=== PATIENT | female | born 1990 | race Caucasian/White ===

== ENCOUNTER 2023-06-24 20:28 | Emergency (ER) | payer SELFPAY ==
--- NOTE | 2023-06-24 | US_ITS ---
The [address] [address] Patient Name: ODELL GARCIA MRN: [id number] date: 1990 Sex: F Assigned Patient Location: ER Current Patient Location: ER Accession/Order Number: [id number] Exam Date: 06/24/2023 23:30 Report Date: 06/25/2023 00:16 At the request of: CORTES TSANG Procedure: US vas organ single comp Examination:US pelvis transvaginal, US vas organ single comp HISTORY: torsion COMPARISONS: CT abdomen and pelvis from the same day. TECHNIQUE: Transvaginal scanning of the pelvis was performed. Color flow Doppler analysis was utilized to evaluate the ovaries. FINDINGS: UTERUS: Normal in size and echogenicity. The uterus measures 7.1 x 4.1 x 5.8 cm. MYOMETRIUM:Unremarkable. ENDOMETRIUM: The endometrium is within normal limits. The endometrium measures1.4 cm which is within normal limits in this premenopausal patient. RIGHT OVARY: There is vascular flow to the right ovary. The right ovary measures 7.0 x 3.5 x 5.2 cm. There is a large cyst arising from the right ovary measuring 4.8 x 4.5 x 4.3 cm. There is a faint peripheral septation without vascular flow. LEFT OVARY: Within normal limits without suspicious masses or cyst. There is normal blood flow. The left ovary measures 3.2 x 2.8 x 1.9 cm. OTHER:There is no significant free fluid in the pelvis. US/US vas organ single comp IMPRESSION: There is no evidence of ovarian torsion based on this exam. There is vascular flow to both ovaries. There is a large mildly complex cyst arising from the right ovary measuring 4.8 x 4.5 x 4.3 cm. This has a thin peripheral avascular septation. Electronically authenticated by: ANGELA DILLARD Date: 06/25/2023 00:16
[2023-06-24 20:34] VITALS: BP 142/96; PULSE 116; RESP 20; TEMP 37.3; O2SAT 99; BMI 41.6
--- NOTE | 2023-06-24 20:42 | CT_ITS ---
The [address] [address] Patient Name: ODELL GARCIA MRN: [id number] date: 1990 Sex: F Assigned Patient Location: ER Current Patient Location: ER Accession/Order Number: [id number] Exam Date: 06/24/2023 21:38 Report Date: 06/24/2023 22:57 At the request of: LELIA GARDINER Procedure: CT abdomen pelvis wo con EXAM: CT SCAN OF THE ABDOMEN AND PELVIS WITHOUT IV CONTRAST DATE OF EXAM: 06/24/2023 9:38 PM EST HISTORY: rlq pain COMPARISON: None. TECHNIQUE: CT examination of the abdomen and pelvis with sagittal and coronal reformations was performed without intravenous contrast. CT dose lowering techniques were used, to include: automated exposure control, adjustment for patient size, and/or use of iterative reconstruction. CONTRAST: None. FINDINGS: Note: This exam is limited because some types of pathology may not be adequately demonstrated due to lack of contrast enhancement. Bus Boy/Lines & Tubes: Nonobstructive bowel gas pattern Lower Chest: Normal Free Air: None. Liver: Normal Gallbladder: Removed Common Bile Duct: Normal Pancreas: Normal Spleen: Normal Adrenal Glands: Right: Normal. Left: Normal Kidneys: Right Kidney: Normal. Right Ureter: Normal. Left Kidney: Normal. Left Ureter: Normal. GI Tract: Distal Esophagus: Normal. Stomach: Normal Small Bowel: Normal Appendix: Normal on coronal image 48 of series 5 Large Bowel: Normal Mesentery/Peritoneum: Normal Vasculature: Normal Lymph Nodes: Normal Abdominal Wall: Normal Bladder: Normal Reproductive: Fluid attenuating right ovarian cyst. Uterus is in neutral position. Musculoskeletal: Normal Free Fluid: None. CT/CT abdomen pelvis wo con IMPRESSION: 1. Enlarged right ovary with fluid attenuating region may represent a cyst. However, acute pathology such as torsion not excluded. Transvaginal ultrasound with spectral Doppler is recommended. 2. Normal appendix. 3. Cholecystectomy 4. Hepatomegaly. Please correlate with LFTs 5. Subcentimeter lymph nodes in the mesentery. Please correlate for mesenteric adenitis. Critical results were NOTIFIED by TELEPHONE BY Dr. Dayna Rodriguez MD to Dr. Alvarez At 06/24/2023 10:03 PM EST. Electronically authenticated by: DAYNA RODRIGUEZ Date: 06/24/2023 22:57
[2023-06-24 20:50] LABS: Basophils Absolute Auto 0.1 10^3/uL (0.0-0.1); Basophils Percent Auto 0.5 % (0.2-2.0); Eosinophils Absolute Auto 0.2 10^3/uL (0.0-0.7); Eosinophils Percent Auto 1.4 % (0.9-7.0); Hematocrit 40.1 % (36.0-48.0); Hemoglobin 12.1 g/dL (12.0-16.0); Immature Granulocytes Abs Auto 0.03 10^3/uL (0.00-0.03); Immature Granulocytes Pct Auto 0.2 % (0.0-0.5); Lymphocytes Absolute Auto 3.4 10^3/uL (1.2-3.8); Lymphocytes Percent Auto 24.9 % (20.5-60.0); Mean Corpuscular HGB Conc 30.2 g/dL (29.9-35.2); Mean Corpuscular Hemoglobin 25.7 pg (26.7-34.0); Mean Corpuscular Volume 85.3 fL (81.0-99.0); Mean Platelet Volume 9.5 fL (9.5-13.5); Monocytes Absolute Auto 0.7 10^3/uL (0.3-0.8); Monocytes Percent Auto 4.9 % (1.7-12.0); Neutrophils Absolute Auto 9.2 10^3/uL (1.4-6.5); Neutrophils Percent Auto 68.1 % (43.0-75.0); Platelet Count 371 10^3/uL (150-450); Red Cell Distribution Width 14.1 % (11.0-15.0); White Blood Count 13.6 10^3/uL (4.0-11.0)
[2023-06-24 21:05] LABS: Alanine Aminotransferase 34 U/L (14-59); Albumin Globulin Ratio 0.8; Albumin Level 3.3 g/dL (3.4-5.0); Alkaline Phosphatase 89 U/L (46-116); Anion Gap 12.3; Aspartate Amino Transferase 16 U/L (15-37); BUN Creatinine Ratio 18.8; Bilirubin Total 0.2 mg/dL (0.2-1.0); Calcium 8.6 mg/dL (8.5-10.1); Carbon Dioxide 27.2 mmol/L (21.0-32.0); Chloride 104 mmol/L (98-107); Estimated GFR (African America >60 (>=60); Estimated GFR (Non-African Ame >60 (>=60); Globulin 4.3 g/dL; Glucose 93 mg/dL (74-106); Potassium 3.5 mmol/L (3.5-5.1); Sodium 140 mmol/L (136-145); Total Protein 7.6 g/dL (6.4-8.2)
--- NOTE | 2023-06-24 21:15 | ED_ITS ---
Documented by User: Patsy Simmons 06/24/23 21:23 HPI - General Adult General Chief complaint: Vaginal Bleeding Stated complaint: Lower Abdominal Pain, Nausea Time Seen by Provider: 06/24/23 20:39 Source: patient Mode of arrival: walk-in Limitations: no limitations History of Present Illness HPI narrative: 32-year-old female presents with right lower quadrant abdominal pain. She states she is also having irregular vaginal bleeding. Denies known history of . She states she has had the pain on and off for several days. Denies history of kidney stones. Does not appear toxic. Related Data Home Medications Medication Instructions Recorded Confirmed No Known Home Medications 06/24/23 06/24/23 Allergies Allergy/AdvReac Type Severity Reaction Status Date / Time No Known Drug Allergies Allergy Verified 06/24/23 20:33 Review of Systems ROS Narrative All Systems are negative except as noted/marked.All systems reviewed and otherwise negative PFSH PFS Social History Smoking status: Former smoker Exam Narrative Exam Narrative: Nurses note and vital signs reviewed and patient is not hypoxic. General: The patient appears well and in no apparent distress. Patient is resting comfortably on cart. Skin: Warm, dry, no pallor noted. There is no rash noted. Head: Normocephalic, atraumatic Eye: Normal conjunctiva, no drainage, EOMI. PERRL Ears, Nose, Mouth, and Throat: oral mucosa is moist. Nares patent. Mouth without vesicles. Ear canals patent. Tm's without Erythema Cardiovascular: Regular Rate and Rhythm Respiratory: Patient is in no distress, no accessory muscle use, lungs are clear to auscultation, no wheezing, rales or rhonchi Back: non-tender, no CVA tenderness bilaterally to percussion. GI: Normal bowel sounds, no tenderness to palpation, no masses appreciated. No rebound, guarding, or rigidity noted. Musculoskeletal: The patient has no evidence of calf tenderness, no pitting edema, symmetrical pulses noted bilaterally Neurological: A&O x4, normal speech Psychiatric: Cooperative Constitutional Vital Signs, click to edit/add: Last Vital Signs Temp 99.1 F 06/24/23 20:34 Pulse 73 06/25/23 00:22 Resp 16 06/25/23 00:22 BP 142/79 H 06/25/23 00:22 Pulse Ox 99 06/25/23 00:22 O2 Del Method Room Air 06/25/23 00:22 Course Vital Signs Vital signs: Vital Signs Temperature 99.1 F 06/24/23 20:34 Pulse Rate 116 H 06/24/23 20:34 Respiratory Rate 20 06/24/23 20:34 Blood Pressure 142/96 H 06/24/23 20:34 Pulse Oximetry 99 06/24/23 20:34 Oxygen Delivery Method Room Air 06/24/23 20:34 Temperature 99.1 F 06/24/23 20:34 Pulse Rate 73 06/25/23 00:22 Respiratory Rate 16 06/25/23 00:22 Blood Pressure 142/79 H 06/25/23 00:22 Pulse Oximetry 99 06/25/23 00:22 Oxygen Delivery Method Room Air 06/25/23 00:22 Medical Decision Making MDM Narrative Medical decision making narrative: 2-day history of right lower quadrant abdominal pain. She has no pain to palpation on examination initially. Upon arrival to the emergency room IV was established patient given IV fluids Toradol and Zofran. She will be sent over CT scan for rule out stone or appendicitis. transition Of care to Dr. Alvarez Differential Diagnosis Differential Diagnosis: Nephrolithiasis, appendicitis, ovarian cyst Medical Records Medical records reviewed: Yes I reviewed the patient's medical records Lab Data Lab results reviewed: Yes I reviewed the patient's lab results Labs: Lab Results 06/24/23 Range/Units 20:40 WBC 13.6 H (4.0-11.0) 10^3/uL RBC 4.70 (4.20-5.40) 10^6/uL Hgb 12.1 (12.0-16.0) g/dL Hct 40.1 (36.0-48.0) % MCV 85.3 (81.0-99.0) fL MCH 25.7 L (26.7-34.0) pg MCHC 30.2 (29.9-35.2) g/dL RDW 14.1 (11.0-15.0) % Plt Count 371 (150-450) 10^3/uL MPV 9.5 (9.5-13.5) fL Neut % (Auto) 68.1 (43.0-75.0) % Lymph % (Auto) 24.9 (20.5-60.0) % [place] % (Auto) 4.9 (1.7-12.0) % Eos % (Auto) 1.4 (0.9-7.0) % Baso % (Auto) 0.5 (0.2-2.0) % Neut # (Auto) 9.2 H (1.4-6.5) 10^3/uL Lymph # (Auto) 3.4 (1.2-3.8) 10^3/uL [place] # (Auto) 0.7 (0.3-0.8) 10^3/uL Eos # (Auto) 0.2 (0.0-0.7) 10^3/uL Baso # (Auto) 0.1 (0.0-0.1) 10^3/uL Abs Immat Gran (auto) 0.03 (0.00-0.03) 10^3/uL Imm/Tot Granulo (auto) 0.2 (0.0-0.5) % Sodium 140 (136-145) mmol/L Potassium 3.5 (3.5-5.1) mmol/L Chloride 104 (98-107) mmol/L Carbon Dioxide 27.2 (21.0-32.0) mmol/L Anion Gap 12.3 BUN 15.0 (7.0-18.0) mg/dL Creatinine 0.80 (0.55-1.02) mg/dL Est GFR ( Amer) >60 (>=60) Est GFR (Non-Af Amer) >60 (>=60) BUN/Creatinine Ratio 18.8 Glucose 93 (74-106) mg/dL Calcium 8.6 (8.5-10.1) mg/dL Total Bilirubin 0.2 (0.2-1.0) mg/dL AST 16 (15-37) U/L ALT 34 (14-59) U/L Alkaline Phosphatase 89 (46-116) U/L Total Protein 7.6 (6.4-8.2) g/dL Albumin 3.3 L (3.4-5.0) g/dL Globulin 4.3 g/dL Albumin/Globulin Ratio 0.8 HCG, Quant <1 mIU/mL Discharge Plan Discharge Stand Alone Forms: Portal Instructions Chief Complaint: Vaginal Bleeding Clinical Impression: Cyst of right ovary Patient Disposition: Home, Self-Care Prescriptions / Home Meds: No Action No Known Home Medications Instructions: Ovarian Cyst (ED) Additional Instructions: call your assembler erector tuesday for followup . Return if increasing pain Referrals: Physician,Non-Staff, [Primary Care Provider] - 1 week Documented by User: Real Alvarez MD 06/25/23 00:58 HPI - General Adult General Chief complaint: Vaginal Bleeding Stated complaint: Lower Abdominal Pain, Nausea Time Seen by Provider: 06/24/23 20:39 Related Data Home Medications Medication Instructions Recorded Confirmed No Known Home Medications 06/24/23 06/24/23 Allergies Allergy/AdvReac Type Severity Reaction Status Date / Time No Known Drug Allergies Allergy Verified 06/24/23 20:33 PFSH PFSH Social History Smoking status: Former smoker Exam Constitutional Vital Signs, click to edit/add: Last Vital Signs Temp 99.1 F 06/24/23 20:34 Pulse 73 06/25/23 00:22 Resp 16 06/25/23 00:22 BP 142/79 H 06/25/23 00:22 Pulse Ox 99 06/25/23 00:22 O2 Del Method Room Air 06/25/23 00:22 Course Vital Signs Vital signs: Vital Signs Temperature 99.1 F 06/24/23 20:34 Pulse Rate 116 H 06/24/23 20:34 Respiratory Rate 20 06/24/23 20:34 Blood Pressure 142/96 H 06/24/23 20:34 Pulse Oximetry 99 06/24/23 20:34 Oxygen Delivery Method Room Air 06/24/23 20:34 Temperature 99.1 F 06/24/23 20:34 Pulse Rate 73 06/25/23 00:22 Respiratory Rate 16 06/25/23 00:22 Blood Pressure 142/79 H 06/25/23 00:22 Pulse Oximetry 99 06/25/23 00:22 Oxygen Delivery Method Room Air 06/25/23 00:22 Medical Decision Making MDM Narrative Medical decision making narrative: 2-day history of right lower quadrant abdominal pain. She has no pain to palpation on examination initially. Upon arrival to the emergency room IV was established patient given IV fluids Toradol and Zofran. She will be sent over CT scan for rule out stone or appendicitis. transition Of care to Dr. Alvarez US pelvis demonstrates large right ovarian cyst 4.8x4.5x4.3 with faint peripheral septation without vascular flow. Normal vascular flow to the right ovary. Patient informed of the above and discharged to followup with her assembler erector Lab Data Labs: Lab Results 06/24/23 Range/Units 20:40 WBC 13.6 H (4.0-11.0) 10^3/uL RBC 4.70 (4.20-5.40) 10^6/uL Hgb 12.1 (12.0-16.0) g/dL Hct 40.1 (36.0-48.0) % MCV 85.3 (81.0-99.0) fL MCH 25.7 L (26.7-34.0) pg MCHC 30.2 (29.9-35.2) g/dL RDW 14.1 (11.0-15.0) % Plt Count 371 (150-450) 10^3/uL MPV 9.5 (9.5-13.5) fL Neut % (Auto) 68.1 (43.0-75.0) % Lymph % (Auto) 24.9 (20.5-60.0) % [place] % (Auto) 4.9 (1.7-12.0) % Eos % (Auto) 1.4 (0.9-7.0) % Baso % (Auto) 0.5 (0.2-2.0) % Neut # (Auto) 9.2 H (1.4-6.5) 10^3/uL Lymph # (Auto) 3.4 (1.2-3.8) 10^3/uL [place] # (Auto) 0.7 (0.3-0.8) 10^3/uL Eos # (Auto) 0.2 (0.0-0.7) 10^3/uL Baso # (Auto) 0.1 (0.0-0.1) 10^3/uL Abs Immat Gran (auto) 0.03 (0.00-0.03) 10^3/uL Imm/Tot Granulo (auto) 0.2 (0.0-0.5) % Sodium 140 (136-145) mmol/L Potassium 3.5 (3.5-5.1) mmol/L Chloride 104 (98-107) mmol/L Carbon Dioxide 27.2 (21.0-32.0) mmol/L Anion Gap 12.3 BUN 15.0 (7.0-18.0) mg/dL Creatinine 0.80 (0.55-1.02) mg/dL Est GFR ( Amer) >60 (>=60) Est GFR (Non-Af Amer) >60 (>=60) BUN/Creatinine Ratio 18.8 Glucose 93 (74-106) mg/dL Calcium 8.6 (8.5-10.1) mg/dL Total Bilirubin 0.2 (0.2-1.0) mg/dL AST 16 (15-37) U/L ALT 34 (14-59) U/L Alkaline Phosphatase 89 (46-116) U/L Total Protein 7.6 (6.4-8.2) g/dL Albumin 3.3 L (3.4-5.0) g/dL Globulin 4.3 g/dL Albumin/Globulin Ratio 0.8 HCG, Quant <1 mIU/mL Discharge Plan Discharge Stand Alone Forms: Portal Instructions Chief Complaint: Vaginal Bleeding Clinical Impression: Cyst of right ovary Patient Disposition: Home, Self-Care Prescriptions / Home Meds: No Action No Known Home Medications Instructions: Ovarian Cyst (ED) Additional Instructions: call your assembler erector tuesday for followup . Return if increasing pain Referrals: Physician,Non-Staff, MD [Primary Care Provider] - 1 week
[2023-06-24] MEDS: 0.9 % SODIUM CHLORIDE 1,000 ML 100 ML IV (21:24)
[2023-06-24] MEDS: KETOROLAC TROMETHAMINE 30 MG/ML VIAL IVP (21:25)
[2023-06-24] MEDS: ONDANSETRON PF 4 MG/2 ML VIAL IV (21:26)
[2023-06-24 21:27] LABS: HCG Quantitative <1 mIU/mL
[2023-06-24 22:42] VITALS: BP 125/80; PULSE 83; RESP 16; O2SAT 100
--- NOTE | 2023-06-24 22:58 | US_ITS ---
The [address] [address] Patient Name: ODELL GARCIA MRN: [id number] date: 1990 Sex: F Assigned Patient Location: ER Current Patient Location: ER Accession/Order Number: [id number] Exam Date: 06/24/2023 23:30 Report Date: 06/25/2023 00:16 At the request of: CORTES TSANG Procedure: US pelvis transvaginal Examination:US pelvis transvaginal, US vas organ single comp HISTORY: torsion COMPARISONS: CT abdomen and pelvis from the same day. TECHNIQUE: Transvaginal scanning of the pelvis was performed. Color flow Doppler analysis was utilized to evaluate the ovaries. FINDINGS: UTERUS: Normal in size and echogenicity. The uterus measures 7.1 x 4.1 x 5.8 cm. MYOMETRIUM:Unremarkable. ENDOMETRIUM: The endometrium is within normal limits. The endometrium measures1.4 cm which is within normal limits in this premenopausal patient. RIGHT OVARY: There is vascular flow to the right ovary. The right ovary measures 7.0 x 3.5 x 5.2 cm. There is a large cyst arising from the right ovary measuring 4.8 x 4.5 x 4.3 cm. There is a faint peripheral septation without vascular flow. LEFT OVARY: Within normal limits without suspicious masses or cyst. There is normal blood flow. The left ovary measures 3.2 x 2.8 x 1.9 cm. OTHER:There is no significant free fluid in the pelvis. US/US pelvis transvaginal IMPRESSION: There is no evidence of ovarian torsion based on this exam. There is vascular flow to both ovaries. There is a large mildly complex cyst arising from the right ovary measuring 4.8 x 4.5 x 4.3 cm. This has a thin peripheral avascular septation. Electronically authenticated by: ANGELA DILLARD Date: 06/25/2023 00:16
[2023-06-25 00:22] VITALS: BP 142/79; PULSE 73; RESP 16; O2SAT 99
== END 2023-06-25 01:25 | disposition home or self-care (01) ==
PROVIDERS: Physician Assistant; Emergency Provider Internal Medicine
DX: N83.201 Unspecified ovarian cyst, right side (principal); Z87.891 Personal history of nicotine dependence
CPT/HCPCS: 36415; 74176; 76830; 80053; 84702; 84703; 85025; 93975; 96374; 96375; 99285

== ENCOUNTER 2024-02-15 20:33 | Outpatient (REF) | payer OTHER, SELFPAY ==
--- OUTSIDE RECORDS SUMMARY | 2024-02-15 20:37 | XMS_ITS | CCD ---
Author Organization [facility] Care Team Providers Care Integrated Logistics Support Manager Name Role Phone HOUSE, DR EVANS Primary Care Unavailable KELSI, EMMA Admitting Unavailable KELSI, EMMA Attending Unavailable JOIE, DR AYANNA Burleson Consulting Unavailable KELSI, EMMA Consulting Unavailable MAURO, DR EVANS Admitting Unavailable MAURO, DR EVANS Attending Unavailable VALENTINE, DR EVANS Primary Care Unavailable JOIE, DR AYANNA Burleson Consulting Unavailable VALENTINE, DR EVANS Consulting Unavailable PARI ZARATE Attending Unavailable Allergies Allergy Classification Reported Allergen(s) Allergy Type Date of Onset Reaction(s) Facility (1 source) Edetate Calcium Drug Allergy 11-26-2019 [facility] Repository Problems Active Problems Problem Classification Problem Date Documented Da te Episodic/Chronic Substance-related disorders (1 source) Nicotine dependence, cigarettes, uncomplicated; Translations: [NICOTINE DEPEND CIGARETTES UNCOMP] Onset: 01-14-2021 Chronic Past or Other Problems Problem Classification Problem Date Documented Da te Episodic/Chronic Abdominal pain (3 sources) Pelvic and perineal pain; Translations: [PELVIC AND PERINEAL PAIN] Onset: 01-12-2021 Episodic Ovarian cyst (2 sources) Unspecified ovarian cyst, left side; Translations: [Unspecified ovarian cyst, right side] Onset: 01-14-2021 Episodic Residual codes; unclassified (1 source) Acquired absence of other specified parts of digestive tract; Translations: [ACQ ABSENCE OTH PART DIGESTV TRACT] Onset: 01-14-2021 Episodic Results Test Name Value Interpretation Reference Range Facil ity ER URINE PROFILEon 1 Bilirubin Ql (U) Negative Normal NEGATIVE [facility] Comment on above: Performed By: #### P REGU, ERUR #### [facility] [address] [place], [place] [address] Dr. Chloe Wilkins Clarity (U) CLEAR Normal CLEAR [facility] Comment on above: Performed By: #### P REGU, ERUR #### [facility] [address] [place] [address] [address] Chloe Wilkins Color (U) LT. YELLOW Normal YELLOW [facility] Comment on above: Performed By: #### P REGU, ERUR #### [facility] [address] [place] [address] [address] Chloe RICE A micrscopic examination will be performed if indicated. Normal [facility] Comment on above: Performed By: #### P REGU, ERUR #### [facility] [address] [place] [address] [address] Chloe Wilkins Glucose Ql (U) Negative Normal NEGATIVE The [facility] Comment on above: Performed By: #### P REGU, ERUR #### [facility] [address] [place] [address] Dr. Chloe Wilkins Hemoglobin Ql (U) Negative Normal NEGATIVE [facility] Comment on above: Performed By: #### P REGU, ERUR #### [facility] [address] [place] [address] [address] Chloe Wilkins Ketones Ql (U) Negative Normal NEGATIVE [facility] Comment on above: Performed By: #### P REGU, ERUR #### [facility] [address] [place] [address] [address] Chloe Wilkins LEUKOCYTES Negative Normal NEGATIVE [facility] Comment on above: Performed By: #### P REGU, ERUR #### [facility] [address] [place] [address] [address] Chloe Wilkins Nitrite Ql (U) Negative Normal NEGATIVE [facility] Comment on above: Performed By: #### P REGU, ERUR #### [facility] [address] [place] [address] [address] Chloe Wilkins pH (U) 5.5 [pH] Normal 5-9 [facility] Comment on above: Performed By: #### P REGU, ERUR #### [facility] [address] [place] [address] [address] Chloe Wilkins SPEC GRAVITY >=1.030 Abnormal 1.005-<=1.025 [facility] Comment on above: Performed By: #### P REGU, ERUR #### [facility] [address] [place] [address] [address] Chloe Wilkins UA PROTEIN Negative Normal NEGATIVE/ TRACE [facility] Comment on above: Performed By: #### P REGU, ERUR #### [facility] [address] [place] [address] Dr. Chloe Wilkins UR MICRO IND NOT INDICATED Normal [facility] Comment on above: Performed By: #### P REGU, ERUR #### [facility] [address] [place] [address] [address] Chloe Wilkins Urobilinogen Qn (U) 0.2 {Jessica'U}/dL Normal 0.2 - 1. 0 [facility] Comment on above: Performed By: #### P REGU, ERUR #### [facility] [address] [place] [address] Dr. Chloe Wilkins URon 01-12-2021 , QUAL Negative Normal NEGATIVE [facility] Comment on above: Performed By: #### P REGU, ERUR #### [facility] [address] [place] [address] Dr. Chloe Wilkins US PELVIS TRANSVAGon 021 US PELVIS TRANSVAG EXAMINATION: US PELVIS TRANSVAG HISTORY: Pain COMPARISON: No relevant comparison available. FINDINGS: Transvaginal images The uterus is normal in size, contour and myometrial echotexture with no focal myometrial mass. Retroflexed. The uterus measures 6.8 x 6.1 x 4.3 cm. The endometrium measures 9 mm, normal. The right ovary is normal in size and contour measuring 4.2 x 3.7 x 3.1 cm. Identified the right ovary is an area of anechoic echogenicity measuring 1.8 x 1.6 x 1.3 cm. A simple cyst is favored. Normal resistive index of 0.61 The left ovary is normal in contour and echotexture, asymmetrically enlarged measuring 5.6 x 3.9 x 5.8 cm. Normal resistive index of 0.47. Avascular cystic area with internal echoes measuring 3.0 x 3.0 x 4.1 cm. Small amount of free pelvic fluid, physiologic in amount IMPRESSION: 4.1 cm left ovarian cystic lesion. I favor a complex or hemorrhagic cyst 1.8 cm right ovarian simple cyst Electronically authenticated by: AYANNA SALTER Date: 2021-01-12 09:08 Normal [facility] Encounters Encounter Date Encounter Type Care Provider Facility Start: 06-22-2023 End: 06-22-2023 ambulatory PARI ZARATE Not Available Start: 07-07-2021 End: 07-08-[address] NATHAN WADE Facility:[facility] Start: 01-12-2021 End: 01-12-[address] NATHAN WADE Facility:[facility] Payers Date Payer Category Payer Unknown [id number] 1990 Unknown [id number] 1990 Unknown [id number] 1958 Unknown [id number] Clinical Note 07-07-2021 Note Date & Type Note Facility 07-07-2021 Note PROCEDURE: XR WRIST RT MIN 3 V COMPARISON: None. HISTORY: Pain of right wrist FINDINGS: BONES:No fracture, acute abnormality, or significant arthropathy. SOFT TISSUES:Negative. No visible soft tissue swelling. EFFUSION:None visible. OTHER: Negative. IMPRESSION: No acute abnormality Electronically authenticated by: AYANNA SALTER Date: 2021-07-07 08:35 [facility] Summary Purpose Family History No Family History Records FoundNo Family History Records Found Advance Directives No Advanced Directives Records FoundNo Advanced Directives Records Found Additional Source Comments INFORMATION SOURCE (unrecogn ized section and content) DATE CREATED AUTHOR 07/08/2021 [facility] DATE CREATED AUTHOR 'S ORGANIZ ATION 06/23/2023 [facility] [employer] [facility] EPIC FOR RECORDS PERTAINING TO PATIENTS WHO ARE OR HAVE BEEN ENROLLED IN A CHEMICAL DEPENDENCY/SUBSTANCEABUSE PROGRAM, SOME INFORMATION MAY BE OMITTED. This clinical summary was aggregated from multiple sources. Caution should be exercised in using it in the provision of clinical care. This summary normalizes information from multiple sources, and as a consequence, information in this document may materially change the coding, format and clinical context of patient data. In addition, data may be omitted in some cases. CLINICAL DECISIONS SHOULD BE BASED ON THE PRIMARY CLINICAL RECORDS. [facility] [employer] [facility]. provides no warranty or guarantee of the accuracy or completeness of information in this document.
== END 2024-02-15 20:34 | disposition home or self-care (01) ==
LOC: LAB 20:33
PROVIDERS: Visit Provider Physician Assistant
DX: Z01.419 Encounter for gynecological examination (general) (routine) without abnormal findings (principal)
CPT/HCPCS: 87624; 88175